=== PATIENT | female | born 1950 | race Caucasian/White ===

== ENCOUNTER 2019-04-21 06:39 | Emergency (ER) | payer MEDICARE ==
[~2019-04-21] VITALS: Ht 170.2 cm; Wt 123.2 kg
[2019-04-21 06:42] VITALS: BP 136/85
[2019-04-21] MEDS ORDERED: PRED20TA PO (06:57)
== END 2019-04-21 07:14 | disposition home or self-care (01) ==
LOC: ER 06:39
DX: L23.9 Allergic contact dermatitis, unspecified cause (principal); E11.9 Type 2 diabetes mellitus without complications; Z88.0 Allergy status to penicillin; Z88.5 Allergy status to narcotic agent; Z88.2 Allergy status to sulfonamides; Z79.899 Other long term (current) drug therapy
CPT/HCPCS: 99283

== ENCOUNTER 2024-10-07 07:52 | Outpatient (CLI) | payer MEDICARE, OTHER ==
[2024-10-07] VITALS (21 sets, daily range): BP systolic 111–150; BP diastolic 59–89; PULSE 74–91
== END 2024-10-07 23:59 | disposition home or self-care (01) ==
LOC: CARD DIAG 07:52
PROVIDERS: ATTEND Internal Medicine Interventional Cardiology
DX: R55 Syncope and collapse (principal)
CPT/HCPCS: 93660